=== PATIENT | female | born 1940 | race Caucasian/White ===

== ENCOUNTER 2019-07-29 10:16 | Outpatient (CLI) | payer MEDICARE | END 2019-07-29 23:59 | disposition home or self-care (01) | LOC: RAD 10:16 | PROVIDERS: ATTEND Physician Assistant | DX: R13.10 Dysphagia, unspecified (principal); M47.812 Spondylosis without myelopathy or radiculopathy, cervical region; M25.78 Osteophyte, vertebrae; G40.909 Epilepsy, unspecified, not intractable, without status epilepticus; Z85.038 Personal history of other malignant neoplasm of large intestine | CPT/HCPCS: 74230 ==

== ENCOUNTER → 2020-08-02 | Outpatient (CLI) | payer MEDICARE | END | disposition home or self-care (01) | LOC: CFH 11:00 | PROVIDERS: ATTEND Nurse Practitioner Family | DX: N85.4 Malposition of uterus (principal); N93.9 Abnormal uterine and vaginal bleeding, unspecified; R19.7 Diarrhea, unspecified; K92.1 Melena; R53.83 Other fatigue; Z85.038 Personal history of other malignant neoplasm of large intestine | CPT/HCPCS: 76830 ==